=== PATIENT | male | born 1985 ===

== ENCOUNTER 2024-03-22 07:58 | Outpatient (REF) | payer OTHER, SELFPAY ==
[2024-03-22 13:12] LABS: MANUAL DIFF FLAG NO
[2024-03-22 13:36] LABS: Basophils Percent Auto 0.6 % (0-2); Eosinophils Absolute Auto 0.1 X10*3/uL (0.0-0.4); Eosinophils Percent Auto 1.1 % (0-4); Estimated Average Glucose 111 mg/dL; Hematocrit 45.9 % (42.0-52.0); Hemoglobin 15.5 g/dl (14.0-18.0); Hemoglobin A1C 140.5137 umol/L; Hemoglobin A1c % 5.5 % (<6.0); Imm Gran Abs Auto 0.02 X10*3/uL (0.00-0.03); Imm Gran Pct Auto 0.3 % (0.0-0.4); Lymphocytes Absolute Auto 1.9 X10*3/uL (1.2-4.9); Mean Corpuscular HGB Conc 33.8 g/dl (31.0-36.0); Mean Corpuscular Hemoglobin 30.6 pg (27.0-33.0); Mean Corpuscular Volume 90.5 fL (80.0-98.0); Mean Platelet Volume 11.2 fL (9.4-12.4); Monocytes Absolute Auto 0.5 X10*3/uL (0.1-1.2); Neutrophils Absolute Auto 3.9 x10*3/uL (2.0-8.3); Platelet Count 229 X10*3/uL (160-400); Red Blood Count 5.07 X10*6/uL (4.60-5.80); Red Cell Distribution Width 12.3 % (11.0-16.0); Total Hemoglobin (HGBA1C) 3835.6094 umol/L; White Blood Count 6.5 X10*3/uL (4.8-10.8)
[2024-03-22 14:03] LABS: Alanine Aminotransferase 35 U/L (0-40); Albumin Level 4.2 g/dL (3.5-5.0); Anion Gap 14 (12-20); Aspartate Amino Transferase 35 U/L (5-37); Bilirubin Total 0.6 mg/dL (0.0-1.0); Blood Urea Nitrogen 17 mg/dL (9-16); Calcium 9.3 mg/dL (8.4-10.2); Carbon Dioxide 26 mmol/L (22-29); Chloride 105 mmol/L (96-108); Cholesterol 212 mg/dL (<200); Estimated Glomerular Filt Rate > 60; Glucose Random 60 mg/dL (60-115); HDL Cholesterol 42 mg/dL (>40); LDL Cholesterol Calculated 137 mg/dL (<100); Potassium 4.2 mmol/L (3.3-5.1); Sodium 141 mmol/L (135-145); Total Protein 7.2 g/dL (6.5-8.0); Triglycerides 169 mg/dL (<150)
[2024-03-22 14:23] LABS: Thyroid Stimulating Hormone 1.78 uIU/mL (0.32-4.0)
[2024-03-22 14:36] LABS: Alkaline Phosphatase 78 U/L (39-117)
[2024-03-27 16:28] LABS: Testosterone, Total 335 ng/dL (250-1100)
== END 2024-03-22 07:59 | disposition home or self-care (01) ==
LOC: HO.MANLDS 07:58
PROVIDERS: Visit Provider Internal Medicine
DX: Z00.00 Encounter for general adult medical examination without abnormal findings (principal); R63.5 Abnormal weight gain; Z13.1 Encounter for screening for diabetes mellitus
CPT/HCPCS: 36415; 80053; 80061; 83036; 84403; 84443; 85025

== ENCOUNTER 2025-01-17 10:28 | Outpatient (REF) | payer OTHER, SELFPAY ==
--- OUTSIDE RECORDS SUMMARY | 2025-01-17 13:07 | XMS_ITS ---
Author Name [facility] Organization Unknown History of Medication Use Medication Directions Dispensed Refills Start Date End Date Stat us predniSONE (DELTASONE) 10 MG tablet Take 40 mg (= 4 tablets) by mouth daily for 2 days, then 30 mg (= 3 tablets) daily for 2 days, then 20 mg (= 2 tablets) daily for 2 days, then 10 mg (= 1 tablet) daily for 2 days. Take with food. 01/01/2025 active trimethoprim-polymyx in b (POLYTRIM) ophthalmic solution Administer 1 drop into the left eye every 6 (six) hours. 12/31/2022 active Problems Problem Status Onset Date Problem Type Date of Resoluti on Source Allergic contact dermatitis, unspecified trigger active EncounterDiagnosisAct [facility] Encounters Encounter Type Encounter Reason Primary Diagnosis Location Date Ambulatory Rash Rash [facility] 01/01/2025 Ambulatory Unspecified conjunctivitis Unspecified conjunctivitis [facility] 12/31/2022 Care Team Organization Name Specialty Phone Email Start Date End Da te [facility] 05/16/2023 [facility] 12/31/2022 12/31/2022 [facility] 12/31/2022 12/31/2022 [facility] 12/31/2022
[2025-01-17 14:04] LABS: MANUAL DIFF FLAG NO
[2025-01-17 14:08] LABS: Hematocrit 43.7 % (42.0-52.0); Hemoglobin 15.2 g/dl (14.0-18.0); Imm Gran Abs Auto 0.02 X10*3/uL (0.00-0.03); Imm Gran Pct Auto 0.3 % (0.0-0.4); Lymphocytes Absolute Auto 2.0 X10*3/uL (1.2-4.9); Mean Corpuscular HGB Conc 34.8 g/dl (31.0-36.0); Mean Corpuscular Hemoglobin 31.0 pg (27.0-33.0); Mean Corpuscular Volume 89.0 fL (80.0-98.0); NRBC Abs Auto 0.000 X10*3/uL (0.0-0.012); NRBC Pct Auto 0.0 /100WBC (0.0-0.2); Platelet Count 229 X10*3/uL (160-400); Red Blood Count 4.91 X10*6/uL (4.60-5.80); White Blood Count 6.0 X10*3/uL (4.8-10.8)
[2025-01-17 14:50] LABS: Alanine Aminotransferase 33 U/L (0-40); Albumin Level 4.3 g/dL (3.5-5.0); Alkaline Phosphatase 76 U/L (39-117); Anion Gap 9 (12-20); Aspartate Amino Transferase 25 U/L (5-37); Blood Urea Nitrogen 24 mg/dL (9-16); Calcium 9.3 mg/dL (8.4-10.2); Carbon Dioxide 29 mmol/L (22-29); Chloride 108 mmol/L (96-108); Estimated Glomerular Filt Rate > 60; Potassium 4.6 mmol/L (3.3-5.1); Sodium 141 mmol/L (135-145); Thyroid Stimulating Hormone 1.15 uIU/mL (0.32-4.0); Total Protein 7.1 g/dL (6.5-8.0)
[2025-01-22 21:53] LABS: Testosterone, Free 53.2 pg/mL (35.0-155.0)
== END 2025-01-17 10:29 | disposition home or self-care (01) ==
LOC: HO.MANLDS 10:28
PROVIDERS: Visit Provider Internal Medicine
DX: R53.82 Chronic fatigue, unspecified (principal)
CPT/HCPCS: 36415; 80053; 84402; 84403; 84443; 85025

== ENCOUNTER 2025-04-16 12:24 | Outpatient (REF) | payer OTHER, SELFPAY ==
--- OUTSIDE RECORDS SUMMARY | 2025-04-16 15:38 | XMS_ITS | Clinical Summary ---
Author Organization [facility] Address [address] [place] [id number] Care Team Providers Care Manager Knowledge Name Role Phone Bill Xie DO Primary Care Provider [phone] Allergies No known active allergies Medications trimethoprim-polym yxin b (POLYTRIM) ophthalmic solutionIndication s:Bacterial conjunctivitis of left eye Administer 1 drop into the left eye every 6 (six) hours. 10 mL 3 Active predniSONE (DELTASONE) 10 MG tabletIndications: Allergic contact dermatitis, unspecified trigger Take 40 mg (= 4 tablets) by mouth daily for 2 days, then 30 mg (= 3 tablets) daily for 2 days, then 20 mg (= 2 tablets) daily for 2 days, then 10 mg (= 1 tablet) daily for 2 days. Take with food. 20 tablet 5 Active Active Problems No known active problems Social History Tobacco Use Types Packs/Day Years Used Date Smoking Tobacco: Never Assessed Sex and Gender Information Value Date Recorded Sex Assigned at Not on file Legal Sex Male 12:00 PM EDT Gender Identity Not on file Sexual Orientation Not on file Last Filed Vital Signs Vital Sign Reading Time Taken Comments Blood Pressure 121/80 01/01/2025 2:07 PM EDT Pulse 63 01/01/2025 2:07 PM EDT Temperature 36.9 C (98.4 F) 01/01/2025 2:07 PM EDT Respiratory Rate - - Oxygen Saturation 98% 01/01/2025 2:07 PM EDT Inhaled Oxygen Concentration - - Weight 104 kg (230 lb) 01/01/2025 2:07 PM EDT Height 182.9 cm (6') 01/01/2025 2:07 PM EDT Body Mass Index 31.19 01/01/2025 2:07 PM EDT Plan of Treatment Health Maintenance Due Date Last Done Comments Hepatitis C Virus Screening 1985 HIV Screening 1998 DTaP/Tdap/Td Vaccines (1 - Tdap) 2004 Hepatitis B Vaccines (1 of 3 - 19+ 3-dose series) 2004 Influenza Vaccine 11/24/2024 COVID-19 Vaccine (1 - 2024-2 6 season) 2024 HPV Vaccines (No Doses Required) Completed Pneumococcal Vaccine: Pediat ambrocio (0-5 Years) and At-Risk Patients (6 to 49 Years) Aged Out No longer eligible b ased on patient's age to complete this topic Insurance [employer] Care Teams Manager Knowledge Relationship Specialty Start Date End Date Bill Xie DO [address] [facility] [place] [address] [place] [address] PCP - General 12/31/22
--- OUTSIDE RECORDS SUMMARY | 2025-04-16 15:38 | XMS_ITS | Clinical Summary ---
Author Organization [facility] Address [address] [place] [address] Care Team Providers Care Wellness Consultant Name Role Phone Bill Xie MD Primary Care Provider [phone] Allergies No known active allergies Medications No known medications Encounters Date Type Department Care Team Description 01/24/2025 7:00 AM EDT - 01/24/2025 8:25 AM EDT Emergency [facility] Department of Emergency Services [address] [place] [address] David Winston MD Fall, initial encounter (Primary Dx); Rib pain Discharge Disposition: Home or Self Care from Last 3 Months Social History Tobacco Use Types Packs/Day Years Used Date Smoking Tobacco: Never Assessed Sex and Gender Information Value Date Recorded Sex Assigned at Not on file Legal Sex Male 6:59 AM EDT Gender Identity Not on file Sexual Orientation Not on file Last Filed Vital Signs Vital Sign Reading Time Taken Comments Blood Pressure 143/85 01/24/2025 8:22 AM EDT Pulse 59 01/24/2025 8:22 AM EDT Temperature 36.3 C (97.3 F) 01/24/2025 7:03 AM EDT Respiratory Rate 16 01/24/2025 8:22 AM EDT Oxygen Saturation 96% 01/24/2025 8:22 AM EDT Inhaled Oxygen Concentration - - Weight - - Height - - Body Mass Index - - Plan of Treatment Health Maintenance Due Date Last Done Comments HIV Screening 1985 Hepatitis C Screening 07/22/2003 Hepatitis B Vaccines (1 of 3 - 19+ 3-dose series) 2004 HPV Vaccines (1 - 3-dose SCDM series) 2012 DTaP,Tdap,and Td Vaccines (2 - Td or Tdap) 04/28/2022 04/28/2012 COVID-19 Vaccine (3 - 2024- season) 2024 02/05/2021, 01/11/2021 Influenza Vaccine (#1) 2024 4, 02/09/2021, 05/14/2020, Additional history exists Zoster Vaccines (1 of 2) 07/22/2035 Meningococcal Vaccine Aged Out 04/28/2012 No maria victoria yue eligible based on patient's age to complete this topic Hepatitis A Vaccines Aged Out 02/25/2013, 05/04/19 13 No longer eligible based on patient's age to complete this topic MMR Vaccines Aged Out No longer eligi ble based on patient's age to complete this topic Pneumococcal Vaccine: At-Risk and Pediatric Patients (0 to 49 Years) Aged Out No longer eligi ble based on patient's age to complete this topic Procedures Procedure Name Priority Date/Time Associated Diagnosis Comments XR CHEST 2 VW STAT 01/24/2025 7:51 AM EDT from Last 3 Months Results * XR chest 2 vw (01/24/2025 7:51 AM EDT) Anatomical Region Laterality Modality Chest Computed Radiogr aphy 01/24/2025 8:00 AM EDT Impressions 01/24/2025 8:03 AM EDT Poor inspiratory effort. No active cardiopulmonary process. Specifically, no intrathoracic sequelae of blunt or closed chest wall trauma.. Reminder to Patients and Legally Authorized Representatives: Language in this report is designed for medical communication with other treating physicians and clinical practitioners. Please speak with your provider(s) about any questions or concerns related to the content of this report. Jh Armando MD AF^0 Narrative 01/24/2025 8:03 AM EDT EXAMINATION: CHEST: PA or AP and lateral views: XR CHEST 2 VW 01/24/2025 7:42 AM 39-year-old male Patient : 1985 INDICATIONS: Chest wall pain. Fall trauma, left ribs pain. FROM [facility] TRIAGE NURSING NOTE: 39 yo male BIBA from home c/c [facility] Pt denies -LOC, -thinner, +head strike. Pt reports pain to left ribs, and SOB with inspiration ACTIVE DUTY FINDINGS: Two views of the chest are reviewed. There is a poor inspiratory effort. The heart, lung tineo, mediastinum and pleural spaces are without significant findings. No active cardiopulmonary process is demonstrated. Specifically, there is no intrathoracic sequelae of blunt or closed chest wall trauma, that is, pulmonary contusion, pneumothorax or blood in the pleural space. The splenic shadow is seen appears to be intact. Procedure Note Jh Armando MD - 01/24/2025 EXAMINATION: CHEST: PA or AP and lateral views: XR CHEST 2 VW 01/24/2025 7:42 AM 39-year-old male Patient : 1985 INDICATIONS: Chest wall pain. Fall trauma, left ribs pain. FROM [facility] TRIAGE NURSING NOTE: 39 yo male BIBA from home c/c slip andfall on ice last night at [facility]. Pt denies -LOC, -thinner, +headstrike. Pt reports pain to left ribs, and SOB with inspiration ACTIVE DUTY FINDINGS: Two views of the chest are reviewed. There is a poor inspiratory effort. The heart, lung tineo, mediastinum and pleural spaces are withoutsignificant findings. No active cardiopulmonary process is demonstrated. Specifically, there isno intrathoracic sequelae of blunt or closed chest wall trauma, that is,pulmonary contusion, pneumothorax or blood in the pleural space. The splenic shadow is seen appears to be intact. IMPRESSION: Poor inspiratory effort. No active cardiopulmonary process. Specifically,no intrathoracic sequelae of blunt or closed chest wall trauma.. Reminder to Patients and Legally Authorized Representatives: Language in this report is designed for medical communication with othertreating physicians and clinical practitioners. Please speak with your provider(s) about any questions or concernsrelated to the content of this report. Jh Armando MD AF^0 Isela MENDOZA IMG XR PROCEDURES Fi nal Result from Last 3 Months Insurance [employer] REQ Care Teams Wellness Consultant Relationship Specialty Start Date End Date Bill Xie MD [address] [place] [phone] PCP - General Internal Medicine 01/24/25
== END 2025-04-16 12:25 | disposition home or self-care (01) ==
LOC: HO.MANLDS 12:24
PROVIDERS: Visit Provider Internal Medicine
DX: R53.83 Other fatigue (principal)
CPT/HCPCS: 36415; 84403